=== PATIENT | male | born 1990 | race Caucasian/White ===

== ENCOUNTER 2025-08-27 14:57 | Emergency (ER) | payer OTHER ==
[~2025-08-27] VITALS: Ht 175.3 cm; Wt 80.4 kg
[2025-08-27] MEDS ORDERED: METHOCARBAMOL 1,000 MG/10 ML VIAL IM ONE (19:15)
[2025-08-27] MEDS ORDERED: LIDO1ADH93 TOP (19:18)
[2025-08-27] MEDS ORDERED: IBUP600T42 PO (19:18)
[2025-08-27] MEDS ORDERED: METH-1164 PO (19:18)
[2025-08-27] MEDS: KETOROLAC 60 MG/2 ML VIAL IM ONE (19:38)
[2025-08-27] MEDS: LIDOCAINE 5% PATCH TD ONE (19:38)
[2025-08-27 19:40] VITALS: BP 118/90; TEMP 97.2; O2SAT 100
== END 2025-08-27 19:55 | disposition home or self-care (01) ==
LOC: M ED 14:57
DX: S13.4XXA Sprain of ligaments of cervical spine, initial encounter (principal); S39.012A Strain of muscle, fascia and tendon of lower back, initial encounter; S50.01XA Contusion of right elbow, initial encounter; Y92.9 Unspecified place or not applicable; Y93.9 Activity, unspecified; Y99.9 Unspecified external cause status; V49.40XA Driver injured in collision with unspecified motor vehicles in traffic accident, initial encounter; Z79.1 Long term (current) use of non-steroidal anti-inflammatories (NSAID); Z79.899 Other long term (current) drug therapy
CPT/HCPCS: 70450; 72125; 72128; 72131; 73060; 73090; 96372; 99284; J1885

== ENCOUNTER → 2025-08-30 | Outpatient (REF) | payer OTHER ==
[~2025-08-30] MED LIST: IBUP600T42 PO; LIDO1ADH93 TOP; METH-1164 PO
[2025-09-04 15:22] LABS: SEMEN APPEARANCE OPAQUE (OPAQUE); SEMEN VISCOSITY LIQUID (LIQUID); SEMEN VOLUME 3.5 ml (2.0-5.0); SPERM CONCENTRATION 25.6 M/ml (>=15.0); WBC CONCENTRATION <=1 M/ml (<=1 M/ml)
[2025-09-04 15:23] LABS: TOTAL PROGRESSIVE SPERM 2.4 M/Ejac.
== END ==
LOC: M LAB REF 12:07
PROVIDERS: ATTEND Physician Assistant
DX: N46.9 Male infertility, unspecified (principal)

== ENCOUNTER → 2025-09-03 | Outpatient (REF) | payer OTHER ==
[2025-09-04 15:24] LABS: SEMEN APPEARANCE OPAQUE (OPAQUE); SEMEN VISCOSITY LIQUID (LIQUID); SEMEN VOLUME 2.2 ml (2.0-5.0); SPERM CONCENTRATION 24.8 M/ml (>=15.0); TOTAL PROGRESSIVE SPERM 0.5 M/Ejac.; WBC CONCENTRATION <=1 M/ml (<=1 M/ml)
== END ==
LOC: M LAB REF 12:09
PROVIDERS: ATTEND Physician Assistant
DX: N46.9 Male infertility, unspecified (principal)